=== PATIENT | male | born 1965 ===

== ENCOUNTER 2020-09-28 11:35 | Emergency (ER) | payer SELFPAY ==
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
== END 2020-09-28 12:48 | disposition home or self-care (01) ==
LOC: ED 11:35
DX: M51.36 Other intervertebral disc degeneration, lumbar region (principal); M47.22 Other spondylosis with radiculopathy, cervical region
CPT/HCPCS: 99281